=== PATIENT | female | born 1980 | race Caucasian/White ===

== ENCOUNTER 2017-12-26 13:25 | Emergency (ER) | payer OTHER ==
[~2017-12-26] VITALS: Ht 157.5 cm; Wt 80.8 kg
[2017-12-26] MEDS ORDERED: OXYCODONE-APAP1 EACH PO (13:35)
[2017-12-26] MEDS ORDERED: LEXAPRO10 MG PO (13:35)
[2017-12-26] MEDS ORDERED: KLONOPIN1 MG PO (13:35)
[2017-12-26] MEDS ORDERED: PRADAXA150 MG PO (13:36)
[2017-12-26] MEDS ORDERED: FLEXERIL10 MG PO (15:12)
[2017-12-26 16:07] VITALS: BP 107/69
== END 2017-12-26 16:09 | disposition home or self-care (01) ==
LOC: EME 13:25
DX: S16.1XXA Strain of muscle, fascia and tendon at neck level, initial encounter (principal); S40.012A Contusion of left shoulder, initial encounter; S00.83XA Contusion of other part of head, initial encounter; R51 Headache; V47.0XXA Car driver injured in collision with fixed or stationary object in nontraffic accident, initial encounter; Y92.410 Unspecified street and highway as the place of occurrence of the external cause; D68.59 Other primary thrombophilia; F17.200 Nicotine dependence, unspecified, uncomplicated
CPT/HCPCS: 70450; 72040; 99281; 99284; J2270